=== PATIENT | male | born 1990 | race Hispanic/Latino ===

== ENCOUNTER 2020-12-03 13:01 | Inpatient (IN) | payer BC ==
[~2020-12-03] VITALS: Ht 180.3 cm; Wt 104.3 kg
[2020-12-03] MEDS ORDERED: SODIUM CHLORIDE 0.9% 1000ML 1,000 ML IV STA (13:20)
[2020-12-03 13:46] LABS: BASOPHILS # (AUTO) 0.1 (0.0-0.1); BASOPHILS % 0.3 % (0.0-1.0); HEMATOCRIT 42.4 % (38.2-49.6); LYMPHOCYTES # (AUTO) 0.6 (1.0-3.2); LYMPHOCYTES % 3.6 % (18.0-39.1); MONOCYTES # (AUTO) 0.5 (0.2-0.8); MONOCYTES % 2.9 % (4.4-11.3); NEUTROPHILS # (AUTO) 15.7 (2.1-6.9); NEUTROPHILS % 90.1 % (38.7-80.0); PLATELET COUNT 415 x10e3/uL (140-360); RED BLOOD COUNT 4.82 x10e6/uL (4.3-5.7); RED CELL DISTRIBUTION WIDTH 12.1 % (11.7-14.4)
[2020-12-03 13:58] LABS: INR 2.05; PROTHROMBIN TIME 24.7 seconds (11.9-14.5)
[2020-12-03 13:59] LABS: PARTIAL THROMBOPLASTIN TIME 38.2 seconds (23.8-35.5)
[2020-12-03 14:06] LABS: ALANINE AMINOTRANSFERASE 308 IU/L (0-55); ALBUMIN 3.3 g/dL (3.5-5.0); ALBUMIN/GLOBULIN RATIO 0.8 (0.8-2.0); ALKALINE PHOSPHATASE 88 IU/L (40-150); ANION GAP 16.2 mmol/L (8-16); BLOOD UREA NITROGEN 14 mg/dL (7-26); BUN/CREATININE RATIO 16 (6-25); CALCIUM 8.4 mg/dL (8.4-10.2); CARBON DIOXIDE 23 mmol/L (22-29); CHLORIDE 102 mmol/L (98-107); CREATINE KINASE 64 IU/L (30-200); CREATININE, SERUM 0.85 mg/dL (0.72-1.25); EST GLOMERULAR FILTRATION RATE > 60 ML/MIN (60-); GLUCOSE 169 mg/dL (74-118); MAGNESIUM 2.3 MG/DL (1.3-2.1); POTASSIUM 4.2 mmol/L (3.5-5.1); SODIUM 137 mmol/L (136-145)
[2020-12-03 15:36] LABS: LYMPHOCYTES % (MANUAL) 4 % (19-48); METAMYELOCYTES % (MANUAL) 1 % (0-0); MONOCYTES % (MANUAL) 1 % (3.4-9.0); NEUTROPHILS % (MANUAL) 94 % (40-74); PLATELET ESTIMATE ADEQUATE; RBC MORPHOLOGY COMMENT NORMAL
[2020-12-03 15:37] LABS: PLATELET MORPHOLOGY COMMENT FEW GIANT
[2020-12-03] MEDS: CEFTRIAXONE SOD 1 GM/NS 50 ML 50 ML IV SCH (15:56)
[2020-12-03] MEDS: AZITHROMYCIN 500MG/NS 250 ML 250 ML IV SCH (15:56)
[2020-12-03] MEDS: DEXAMETHASONE SOD PHOS 10 MG/1 ML VIAL IV SCH (15:56)
[2020-12-03] MEDS ORDERED: ACETAMINOPHEN/CODEINE 300MG - 30MG TAB PO PRN (17:00)
[2020-12-03] MEDS ORDERED: ONDANSETRON HCL INJ 2MG/ML 2ML 2 MG/ML VIAL IV PRN (17:00)
[2020-12-03] MEDS ORDERED: HYDRALAZINE HCL 20 MG/ML VIAL IV PRN (17:00)
[2020-12-03] MEDS ORDERED: ACETAMINOPHEN 325 MG TAB PO PRN (17:00)
[2020-12-03] MEDS ORDERED: REMDESIVIR 200MG/NS 100ML 200 MG in SODIUM CHLORIDE 0.9% 100 ML 100 ML IV ONE (18:00)
[2020-12-03] MEDS ORDERED: GUAIFENESIN/CODEINE 10 ML CUP PO PRN (18:00)
[2020-12-03 19:38] VITALS: BP 152/99
[2020-12-03] MEDS: ENOXAPARIN SOD INJ 40 MG/0.4 ML SYR SC SCH (20:27)
[2020-12-03 20:31] VITALS: BP 152/99
[2020-12-03 21:10] VITALS: BP 152/99
[2020-12-03] MEDS ORDERED: REMDESIVIR 100MG/NS 100ML 100 MG in SODIUM CHLORIDE 0.9% 100 ML 100 ML IV SCH (22:30)
[2020-12-04] VITALS (8 sets, daily range): BP systolic 113–135; BP diastolic 74–89
[2020-12-04 05:00] LABS: BASOPHILS % 0.3 % (0.0-1.0); HEMATOCRIT 39.8 % (38.2-49.6); HEMOGLOBIN 13.2 g/dL (14.0-18.0); LYMPHOCYTES # (AUTO) 0.9 (1.0-3.2); LYMPHOCYTES % 6.7 % (18.0-39.1); MEAN CORPUSCULAR HEMOGLOBIN 29.1 pg (28-32); MEAN CORPUSCULAR HGB CONC 33.2 g/dL (31-35); MEAN CORPUSCULAR VOLUME 87.9 fL (81-99); MONOCYTES # (AUTO) 0.6 (0.2-0.8); MONOCYTES % 4.7 % (4.4-11.3); NEUTROPHILS # (AUTO) 10.9 (2.1-6.9); NEUTROPHILS % 84.4 % (38.7-80.0); PLATELET COUNT 382 x10e3/uL (140-360); RED BLOOD COUNT 4.53 x10e6/uL (4.3-5.7); RED CELL DISTRIBUTION WIDTH 11.9 % (11.7-14.4)
[2020-12-04 05:32] LABS: ALANINE AMINOTRANSFERASE 272 IU/L (0-55); ALBUMIN 2.9 g/dL (3.5-5.0); ALBUMIN/GLOBULIN RATIO 0.7 (0.8-2.0); ALKALINE PHOSPHATASE 79 IU/L (40-150); ANION GAP 16.3 mmol/L (8-16); BLOOD UREA NITROGEN 15 mg/dL (7-26); BUN/CREATININE RATIO 20 (6-25); CALCIUM 8.2 mg/dL (8.4-10.2); CARBON DIOXIDE 23 mmol/L (22-29); CHLORIDE 101 mmol/L (98-107); CREATININE, SERUM 0.75 mg/dL (0.72-1.25); EST GLOMERULAR FILTRATION RATE > 60 ML/MIN (60-); GLUCOSE 178 mg/dL (74-118); POTASSIUM 4.3 mmol/L (3.5-5.1); SODIUM 136 mmol/L (136-145)
[2020-12-04] MEDS ORDERED: SODIUM CHLORIDE 0.9% 250ML 250 ML ONE (07:49)
[2020-12-04] MEDS: DEXAMETHASONE SOD PHOS 10 MG/1 ML VIAL IV SCH (07:57)
[2020-12-04] MEDS: CHOLECALCIFEROL 400 UNIT TAB PO SCH (07:57)
[2020-12-04] MEDS: ZINC SULFATE 220 MG CAP PO SCH (07:57)
[2020-12-04] MEDS: ASCORBIC ACID 500 MG TAB PO SCH (07:57)
[2020-12-04] MEDS: ENOXAPARIN SOD INJ 40 MG/0.4 ML SYR SC SCH ×2 (07:57→20:10)
[2020-12-04] MEDS ORDERED: REMDESIVIR 200MG/NS 100ML 200 MG in SODIUM CHLORIDE 0.9% 100 ML 100 ML IV ONE (09:00)
[2020-12-04] MEDS ORDERED: ZINC SULFATE 220 MG CAP PO SCH (09:00)
[2020-12-04] MEDS: CEFTRIAXONE SOD 1 GM/NS 50 ML 50 ML IV SCH (14:00)
[2020-12-04] MEDS: AZITHROMYCIN 500MG/NS 250 ML 250 ML IV SCH (14:41)
[2020-12-04] MEDS: FAMOTIDINE 20 MG TAB PO SCH (16:24)
[2020-12-04] MEDS ORDERED: IOPAMIDOL 370 MG/ML 200 ML INFUS..BTL INJ ONE (17:47)
[2020-12-04] MEDS ORDERED: SODIUM CHLORIDE 0.9% 50ML 50 ML ONE (17:47)
[2020-12-05] VITALS (8 sets, daily range): BP systolic 104–122; BP diastolic 65–83
[2020-12-05 05:29] LABS: BASOPHILS # (AUTO) 0.1 (0.0-0.1); BASOPHILS % 0.6 % (0.0-1.0); HEMATOCRIT 41.8 % (38.2-49.6); HEMOGLOBIN 13.5 g/dL (14.0-18.0); LYMPHOCYTES # (AUTO) 1.4 (1.0-3.2); LYMPHOCYTES % 9.9 % (18.0-39.1); MEAN CORPUSCULAR HGB CONC 32.3 g/dL (31-35); MEAN CORPUSCULAR VOLUME 89.9 fL (81-99); MONOCYTES # (AUTO) 0.9 (0.2-0.8); MONOCYTES % 6.2 % (4.4-11.3); NEUTROPHILS # (AUTO) 11.2 (2.1-6.9); NEUTROPHILS % 79.1 % (38.7-80.0); PLATELET COUNT 384 x10e3/uL (140-360); RED BLOOD COUNT 4.65 x10e6/uL (4.3-5.7)
[2020-12-05 05:52] LABS: ALANINE AMINOTRANSFERASE 232 IU/L (0-55); ALBUMIN/GLOBULIN RATIO 0.8 (0.8-2.0); ALKALINE PHOSPHATASE 81 IU/L (40-150); ANION GAP 13.6 mmol/L (8-16); BLOOD UREA NITROGEN 19 mg/dL (7-26); BUN/CREATININE RATIO 25 (6-25); CALCIUM 8.6 mg/dL (8.4-10.2); CARBON DIOXIDE 25 mmol/L (22-29); CHLORIDE 102 mmol/L (98-107); CREATININE, SERUM 0.77 mg/dL (0.72-1.25); EST GLOMERULAR FILTRATION RATE > 60 ML/MIN (60-); GLUCOSE 149 mg/dL (74-118); MAGNESIUM 2.3 MG/DL (1.3-2.1); PHOSPHORUS 4.3 MG/DL (2.3-4.7); POTASSIUM 4.6 mmol/L (3.5-5.1); SODIUM 136 mmol/L (136-145)
[2020-12-05 06:17] LABS: THYROID STIMULATING HORMONE 0.593 uIU/mL (0.350-4.940)
[2020-12-05] MEDS: DEXAMETHASONE SOD PHOS 10 MG/1 ML VIAL IV SCH (09:56)
[2020-12-05] MEDS: CHOLECALCIFEROL 400 UNIT TAB PO SCH (09:56)
[2020-12-05] MEDS: ENOXAPARIN SOD INJ 40 MG/0.4 ML SYR SC SCH ×2 (09:56→20:16)
[2020-12-05] MEDS: FAMOTIDINE 20 MG TAB PO SCH ×2 (09:56→17:11)
[2020-12-05] MEDS: REMDESIVIR 100MG/NS 100ML 100 MG in SODIUM CHLORIDE 0.9% 100 ML 100 ML IV SCH (09:56)
[2020-12-05] MEDS: ASCORBIC ACID 500 MG TAB PO SCH (09:56)
[2020-12-05] MEDS: ZINC SULFATE 220 MG CAP PO SCH (09:56)
[2020-12-05 10:43] LABS: HIV 1&2 AB SCREEN NON-REACTIVE (NONREACTIVE)
[2020-12-05] MEDS: CEFTRIAXONE SOD 1 GM/NS 50 ML 50 ML IV SCH (14:32)
[2020-12-05] MEDS: AZITHROMYCIN 500MG/NS 250 ML 250 ML IV SCH (15:36)
[2020-12-06] VITALS (8 sets, daily range): BP systolic 104–119; BP diastolic 65–90
[2020-12-06 06:37] LABS: BASOPHILS # (AUTO) 0.1 (0.0-0.1); BASOPHILS % 0.5 % (0.0-1.0); HEMATOCRIT 40.2 % (38.2-49.6); HEMOGLOBIN 13.4 g/dL (14.0-18.0); LYMPHOCYTES # (AUTO) 1.5 (1.0-3.2); LYMPHOCYTES % 11.6 % (18.0-39.1); MEAN CORPUSCULAR HEMOGLOBIN 29.1 pg (28-32); MEAN CORPUSCULAR HGB CONC 33.3 g/dL (31-35); MEAN CORPUSCULAR VOLUME 87.2 fL (81-99); MONOCYTES # (AUTO) 0.6 (0.2-0.8); MONOCYTES % 4.8 % (4.4-11.3); NEUTROPHILS # (AUTO) 10.4 (2.1-6.9); NEUTROPHILS % 79.2 % (38.7-80.0); PLATELET COUNT 409 x10e3/uL (140-360); RED BLOOD COUNT 4.61 x10e6/uL (4.3-5.7); RED CELL DISTRIBUTION WIDTH 11.8 % (11.7-14.4)
[2020-12-06 07:25] LABS: ALANINE AMINOTRANSFERASE 200 IU/L (0-55); ALBUMIN/GLOBULIN RATIO 0.9 (0.8-2.0); ALKALINE PHOSPHATASE 70 IU/L (40-150); ANION GAP 14.7 mmol/L (8-16); BLOOD UREA NITROGEN 20 mg/dL (7-26); BUN/CREATININE RATIO 27 (6-25); CALCIUM 8.3 mg/dL (8.4-10.2); CARBON DIOXIDE 22 mmol/L (22-29); CHLORIDE 102 mmol/L (98-107); CREATININE, SERUM 0.75 mg/dL (0.72-1.25); EST GLOMERULAR FILTRATION RATE > 60 ML/MIN (60-); GLUCOSE 184 mg/dL (74-118); POTASSIUM 4.7 mmol/L (3.5-5.1); SODIUM 134 mmol/L (136-145)
[2020-12-06] MEDS: ZINC SULFATE 220 MG CAP PO SCH (09:26)
[2020-12-06] MEDS: FAMOTIDINE 20 MG TAB PO SCH ×2 (09:26→17:52)
[2020-12-06] MEDS: ASCORBIC ACID 500 MG TAB PO SCH (09:26)
[2020-12-06] MEDS: CHOLECALCIFEROL 400 UNIT TAB PO SCH (09:26)
[2020-12-06] MEDS: ENOXAPARIN SOD INJ 40 MG/0.4 ML SYR SC SCH ×2 (09:26→20:19)
[2020-12-06] MEDS: DEXAMETHASONE SOD PHOS 10 MG/1 ML VIAL IV SCH (09:26)
[2020-12-06] MEDS: REMDESIVIR 100MG/NS 100ML 100 MG in SODIUM CHLORIDE 0.9% 100 ML 100 ML IV SCH (09:27)
[2020-12-06] MEDS: CEFTRIAXONE SOD 1 GM/NS 50 ML 50 ML IV SCH (15:16)
[2020-12-06] MEDS: AZITHROMYCIN 500MG/NS 250 ML 250 ML IV SCH (16:00)
[2020-12-07] VITALS (8 sets, daily range): BP systolic 112–120; BP diastolic 67–77
[2020-12-07 06:08] LABS: BASOPHILS % 0.3 % (0.0-1.0); EOSINOPHILS % 0.1 % (0.0-6.0); HEMATOCRIT 40.6 % (38.2-49.6); HEMOGLOBIN 13.5 g/dL (14.0-18.0); LYMPHOCYTES # (AUTO) 1.8 (1.0-3.2); LYMPHOCYTES % 14.2 % (18.0-39.1); MEAN CORPUSCULAR HEMOGLOBIN 28.9 pg (28-32); MEAN CORPUSCULAR HGB CONC 33.3 g/dL (31-35); MEAN CORPUSCULAR VOLUME 86.9 fL (81-99); MONOCYTES # (AUTO) 0.8 (0.2-0.8); MONOCYTES % 6.2 % (4.4-11.3); NEUTROPHILS # (AUTO) 9.2 (2.1-6.9); NEUTROPHILS % 75.2 % (38.7-80.0); PLATELET COUNT 416 x10e3/uL (140-360); RED BLOOD COUNT 4.67 x10e6/uL (4.3-5.7); RED CELL DISTRIBUTION WIDTH 11.8 % (11.7-14.4)
[2020-12-07 06:37] LABS: ANION GAP 14.5 mmol/L (8-16); BLOOD UREA NITROGEN 18 mg/dL (7-26); BUN/CREATININE RATIO 23 (6-25); CALCIUM 8.2 mg/dL (8.4-10.2); CARBON DIOXIDE 23 mmol/L (22-29); CHLORIDE 100 mmol/L (98-107); CREATININE, SERUM 0.77 mg/dL (0.72-1.25); EST GLOMERULAR FILTRATION RATE > 60 ML/MIN (60-); GLUCOSE 129 mg/dL (74-118); MAGNESIUM 2.3 MG/DL (1.3-2.1); POTASSIUM 4.5 mmol/L (3.5-5.1); SODIUM 133 mmol/L (136-145)
[2020-12-07] MEDS: CHOLECALCIFEROL 400 UNIT TAB PO SCH (08:32)
[2020-12-07] MEDS: FAMOTIDINE 20 MG TAB PO SCH ×2 (08:32→16:30)
[2020-12-07] MEDS: ZINC SULFATE 220 MG CAP PO SCH (08:32)
[2020-12-07] MEDS: ASCORBIC ACID 500 MG TAB PO SCH (08:32)
[2020-12-07] MEDS: ENOXAPARIN SOD INJ 40 MG/0.4 ML SYR SC SCH ×2 (08:32→21:00)
[2020-12-07] MEDS: REMDESIVIR 100MG/NS 100ML 100 MG in SODIUM CHLORIDE 0.9% 100 ML 100 ML IV SCH (08:32)
[2020-12-07] MEDS: DEXAMETHASONE SOD PHOS 10 MG/1 ML VIAL IV SCH (08:32)
[2020-12-07] MEDS: CEFTRIAXONE SOD 1 GM/NS 50 ML 50 ML IV SCH (14:09)
[2020-12-07] MEDS: AZITHROMYCIN 500MG/NS 250 ML 250 ML IV SCH (15:03)
[2020-12-08] VITALS (8 sets, daily range): BP systolic 102–117; BP diastolic 65–76
[2020-12-08 06:06] LABS: BASOPHILS % 0.3 % (0.0-1.0); EOSINOPHILS % 0.1 % (0.0-6.0); HEMOGLOBIN 14.1 g/dL (14.0-18.0); LYMPHOCYTES # (AUTO) 1.7 (1.0-3.2); LYMPHOCYTES % 12.9 % (18.0-39.1); MEAN CORPUSCULAR HEMOGLOBIN 29.1 pg (28-32); MEAN CORPUSCULAR HGB CONC 33.6 g/dL (31-35); MEAN CORPUSCULAR VOLUME 86.6 fL (81-99); MONOCYTES # (AUTO) 0.8 (0.2-0.8); NEUTROPHILS % 77.5 % (38.7-80.0); PLATELET COUNT 424 x10e3/uL (140-360); RED BLOOD COUNT 4.85 x10e6/uL (4.3-5.7); RED CELL DISTRIBUTION WIDTH 11.7 % (11.7-14.4)
[2020-12-08 06:23] LABS: ANION GAP 16.6 mmol/L (8-16); BLOOD UREA NITROGEN 24 mg/dL (7-26); BUN/CREATININE RATIO 31 (6-25); CALCIUM 8.5 mg/dL (8.4-10.2); CARBON DIOXIDE 22 mmol/L (22-29); CHLORIDE 101 mmol/L (98-107); CREATININE, SERUM 0.77 mg/dL (0.72-1.25); EST GLOMERULAR FILTRATION RATE > 60 ML/MIN (60-); GLUCOSE 126 mg/dL (74-118); POTASSIUM 4.6 mmol/L (3.5-5.1); SODIUM 135 mmol/L (136-145)
[2020-12-08] MEDS: ZINC SULFATE 220 MG CAP PO SCH (08:41)
[2020-12-08] MEDS: REMDESIVIR 100MG/NS 100ML 100 MG in SODIUM CHLORIDE 0.9% 100 ML 100 ML IV SCH (08:41)
[2020-12-08] MEDS: DEXAMETHASONE SOD PHOS 10 MG/1 ML VIAL IV SCH (08:41)
[2020-12-08] MEDS: ASCORBIC ACID 500 MG TAB PO SCH (08:41)
[2020-12-08] MEDS: FAMOTIDINE 20 MG TAB PO SCH ×2 (08:41→15:50)
[2020-12-08] MEDS: CHOLECALCIFEROL 400 UNIT TAB PO SCH (08:41)
[2020-12-08] MEDS: ENOXAPARIN SOD INJ 40 MG/0.4 ML SYR SC SCH ×2 (08:41→20:44)
[2020-12-08] MEDS: CEFTRIAXONE SOD 1 GM/NS 50 ML 50 ML IV SCH (14:08)
[2020-12-08] MEDS: AZITHROMYCIN 500MG/NS 250 ML 250 ML IV SCH (14:46)
[2020-12-09] VITALS: BP 112/75
[2020-12-09 05:01] VITALS: BP 108/79
[2020-12-09] MEDS ORDERED: ASPIRIN325 MG PO (05:45)
[2020-12-09] MEDS ORDERED: PROVENTIL HFA6.7 GM INH (05:45)
[2020-12-09] MEDS ORDERED: DEXAMETHASONE4 MG PO (05:45)
[2020-12-09 06:36] LABS: BASOPHILS % 0.2 % (0.0-1.0); EOSINOPHILS % 0.1 % (0.0-6.0); HEMATOCRIT 41.2 % (38.2-49.6); HEMOGLOBIN 14.6 g/dL (14.0-18.0); LYMPHOCYTES # (AUTO) 1.6 (1.0-3.2); LYMPHOCYTES % 11.7 % (18.0-39.1); MEAN CORPUSCULAR HEMOGLOBIN 31.8 pg (28-32); MEAN CORPUSCULAR HGB CONC 35.4 g/dL (31-35); MEAN CORPUSCULAR VOLUME 89.8 fL (81-99); MONOCYTES # (AUTO) 0.7 (0.2-0.8); MONOCYTES % 5.4 % (4.4-11.3); NEUTROPHILS # (AUTO) 10.8 (2.1-6.9); NEUTROPHILS % 79.9 % (38.7-80.0); PLATELET COUNT 343 x10e3/uL (140-360); RED BLOOD COUNT 4.59 x10e6/uL (4.3-5.7); RED CELL DISTRIBUTION WIDTH 12.4 % (11.7-14.4)
[2020-12-09 07:06] LABS: ALANINE AMINOTRANSFERASE 123 IU/L (0-55); ALBUMIN 3.2 g/dL (3.5-5.0); ALKALINE PHOSPHATASE 62 IU/L (40-150); ANION GAP 11.9 mmol/L (8-16); BLOOD UREA NITROGEN 21 mg/dL (7-26); BUN/CREATININE RATIO 28 (6-25); CALCIUM 8.4 mg/dL (8.4-10.2); CARBON DIOXIDE 23 mmol/L (22-29); CHLORIDE 102 mmol/L (98-107); CREATININE, SERUM 0.75 mg/dL (0.72-1.25); EST GLOMERULAR FILTRATION RATE > 60 ML/MIN (60-); GLUCOSE 122 mg/dL (74-118); POTASSIUM 3.9 mmol/L (3.5-5.1); SODIUM 133 mmol/L (136-145)
[2020-12-09] MEDS: FAMOTIDINE 20 MG TAB PO SCH (07:59)
[2020-12-09] MEDS: DEXAMETHASONE SOD PHOS 10 MG/1 ML VIAL IV SCH (07:59)
[2020-12-09] MEDS: CHOLECALCIFEROL 400 UNIT TAB PO SCH (07:59)
[2020-12-09] MEDS: ZINC SULFATE 220 MG CAP PO SCH (07:59)
[2020-12-09] MEDS: ENOXAPARIN SOD INJ 40 MG/0.4 ML SYR SC SCH (07:59)
[2020-12-09] MEDS: ASCORBIC ACID 500 MG TAB PO SCH (07:59)
[2020-12-09 08:22] VITALS: BP 108/79
[2020-12-09 08:41] VITALS: BP 101/60
== END 2020-12-09 08:26 | disposition home or self-care (01) | DRG 177 ==
LOC: ER 13:20 → ERHOLD 14:10 → IMCU 19:21
PROVIDERS: ADMIT Internal Medicine; ATTEND Internal Medicine
PROC: XW033E5 Introduction of Remdesivir Anti-infective into Peripheral Vein, Percutaneous Approach, New Technology Group 5 (ICD-10-PCS; principal; 2020-12-03)
PROC: 3E0333Z Introduction of Anti-inflammatory into Peripheral Vein, Percutaneous Approach (ICD-10-PCS; 2020-12-03)
DX: U07.1 COVID-19 (principal); J12.82 Pneumonia due to coronavirus disease 2019; J96.01 Acute respiratory failure with hypoxia; J15.9 Unspecified bacterial pneumonia; B19.9 Unspecified viral hepatitis without hepatic coma; Z80.3 Family history of malignant neoplasm of breast; E83.41 Hypermagnesemia; R73.9 Hyperglycemia, unspecified; E66.9 Obesity, unspecified; Z68.32 Body mass index [BMI] 32.0-32.9, adult
CPT/HCPCS: 36415; 71045; 71260; 80048; 80053; 82550; 82553; 83036; 83735; 83880; 84100; 84443; 84484; 85025; 85610; 85730; 87040; 87390; 87536; 99284; G0433; G0435; J0456; J0696; J1100; J1650; J7030; J7050; Q9967; U0002